=== PATIENT | female | born 1935 | race Caucasian/White ===

== ENCOUNTER 2016-09-02 14:00 | Inpatient (IN) | payer MEDICAID ==
[~2016-09-02] VITALS: Ht 170.2 cm; Wt 105.7 kg
--- NOTE | ~2016-09-02 | PUL ---
PATIENT'S NAME: ALEJANDRO STEVENS [facility] AGE: 81 Y [address] ROOM: [address] [address] LOCATION: GPCU ADMIT DATE: 09/08/2016 Pulmonary DISCHARGE DATE: 09/12/2016 FAMILY PHYSICIAN: Vince Mixon MD ATTENDING PHYSICIAN: Torin Mayfield NAME OF PROCEDURE: Overnight Pulse Oximetry DATE OF PROCEDURE: September 11 September 12, 2016 REASON FOR EXAM: Nocturnal hypoxemia RESULTS: The test was performed on room air. The recording time was 7 hours, 36 minutes, and 44 seconds, with a total valid sampling time of 7 hours, 23 minutes, and 48 seconds. The highest pulse was 126, lowest pulse was 60, with a mean pulse of 72. The highest SpO2 was 97%, lowest SpO2 was 69%, with a mean SpO2 of 90.1%. The patient spent 2 hours, 17 minutes, and 12 seconds with SpO2 less than 89%, representing 30.9% of the total sleep time. The desaturation event index was elevated at 20.4. PHYSICIAN INTERPRETATION: The patient has evidence of significant nocturnal hypoxia and would qualify for supplemental oxygen as per Medicare criteria. However because of the severity of her nocturnal hypoxia with an elevated desaturation event index a sleep study is recommended at this time. LISA PETERS MD RFLana/gabo /[id number] dtt: 09/15/16 1621 , LISA PETERS dtd: 09/15/16 1356
--- NOTE | ~2016-09-02 | DS ---
PATIENT'S NAME: ALEJANDRO STEVENS [facility] AGE: 81 Y [address] ROOM: [id number] [place], [place] [address] LOCATION: GPCU ADMIT DATE: 09/08/2016 Discharge Summary DISCHARGE DATE: 09/12/2016 FAMILY PHYSICIAN: Vince Mixon MD ATTENDING PHYSICIAN: Torin Mayfield FINAL DIAGNOSIS: Abdominal aortic aneurysm, postop endovascular aneurysm repair. SECONDARY DIAGNOSES: 1. Leukocytosis, resolved. 2. Essential hypertension. 3. Chronic kidney disease, stage 3. 4. Paroxysmal atrial fibrillation. 5. Diabetes mellitus type 2. PROCEDURES: EVAR of abdominal aortic aneurysm by Dr. Mayfield on 09/09/2016. CONSULTATIONS: Hospitalist for medication management. HOSPITAL COURSE: This is an 81-year-old female admitted to [facility] on 09/08/2016 in preparation of abdominal aortic aneurysm repair. The patient was with known 5.1 cm asymptomatic AAA without rupture. The patient was admitted on the evening prior to her procedure for hydration as well as pretreatment for contrast allergy with prednisone and Benadryl. The patient had elevated creatinine at 1.35. Lasix and metformin were held prior to procedure and normal saline fluids were initiated. Eliquis for paroxysmal atrial fibrillation, on hold 4 days prior. On 09/09/2016, the patient underwent abdominal aortic aneurysm, EVAR with Dr. Mayfield without complications. The patient tolerated the procedure well and after recovery, was admitted to progressive care unit for monitoring of telemetry, vitals, labs, surgical sites, pain management, medication administration, and nursing assistance. Her normal saline continued. She was also continued on IV Ancef for 24 hours. Wound Care did evaluate the patient for fungal rash under her bilateral breasts and abdominal folds. The patient was started on nystatin ointment. On postop day #1, the patient was found to have pain control at surgical incisions. Her sites were found to be stable without hematoma, and distal perfusion intact. Centeno catheter and arterial line removed, and the patient was up to chair without problems. The patient remained afebrile, but did have elevated white blood cell count as expected with post-implantation inflammatory response. Due to concern of leukocytosis, hospitalist ordered urinalysis, urine culture, procalcitonin level, blood cultures, and antibiotics if temperature were to reach greater than 100.4. Cultures were found to be negative. On postop day #2, Physical Therapy and Occupational Therapy began working with the patient. PATIENT'S NAME: ALEJANDRO STEVENS [facility] AGE: 81 Y [address] ROOM: [id number] [place], [place] [address] LOCATION: GPCU ADMIT DATE: 09/08/2016 Discharge Summary DISCHARGE DATE: 09/12/2016 FAMILY PHYSICIAN: Vince Mixon MD ATTENDING PHYSICIAN: Torin Mayfield She received daily dry dressing changes to her groin, and she had an improvement in leukocytosis. Once again, the patient remained afebrile. An overnight trend ox was ordered. The patient had evidence of significant nocturnal hypoxia and would qualify for supplemental oxygen as per Medicare criteria. However, because of the severity of her nocturnal hypoxia with an elevated desaturation event index, a sleep study was recommended at this time. On postop day #3, surgical incisions remained stable and intact. The patient was able to perform transfer and ambulate 150 feet with walker and standby assist with no loss of balance. She had no new complaints and pain was well controlled. She was found in a stable condition to discharge home with home health. LABORATORY DATA: White blood cell count trending 8.7, 17.1, 14.8, and 11.0. Hemoglobin trending 14.1, 12.5, 12.1, and 11.8. Creatinine trending 1.3, 1.4, 1.5, 1.3, and 1.2. DISCHARGE ORDERS: The patient is to be discharged to home on a diabetic diet. She is to avoid heavy lifting for 2 weeks. The patient is to receive assistance from [facility]. She is to follow up with Cathy Messer APRN in [place] on October 08 for staple removal and incision evaluation. She is to follow up with a CT for stent graft protocol in 3 months. She is to keep her groin incision dry and apply dry dressings daily. Report any signs or symptoms of infection including redness, swelling, fevers, chills, or drainage. DISCHARGE MEDICATIONS: 1. Celexa 40 mg p.o. every morning. 2. Celexa 20 mg p.o. every morning. 3. Lopressor 75 mg p.o. twice daily. 4. Protonix 40 mg p.o. daily before breakfast. 5. Lipitor 20 mg p.o. daily at bedtime. 6. Docusate sodium 100 mg p.o. twice daily. 7. Magnesium oxide 400 mg p.o. daily. 8. Eliquis 5 mg p.o. twice daily, to restart on 09/16/2016. 9. Cozaar 50 mg p.o. daily. 10. Lasix 20 mg p.o. daily. 11. Levothroid 125 mcg p.o. daily before breakfast. 12. Metformin extended release 500 mg p.o. every morning. 13. Nitroglycerin 0.4 mg sublingual as needed for chest pain. 14. Nystatin 30 grams topical 4 times daily. Apply to affected area. 15. [place] 5/325 one to two tabs p.o. every 4 hours as needed for pain. DISPOSITION: The patient was discharged to home in a stable condition with the assistance of home health. She is to follow discharge orders as prescribed. Education about discharge including incisional care, home health, PATIENT'S NAME: ALEJANDRO STEVENS [facility] AGE: 81 Y [address] ROOM: [place] [address] LOCATION: GPCU ADMIT DATE: 09/08/2016 Discharge Summary DISCHARGE DATE: 09/12/2016 FAMILY PHYSICIAN: Vince Mixon MD ATTENDING PHYSICIAN: Toirn Mayfield medications, prescriptions, diet and activity, and followup appointments were given to the patient. The patient verbalized an understanding of the plan and had no further questions or concerns. She is to follow discharge orders as prescribed. CATHY MESSER APRN FOR TORIN MAYFIELD MD TO/modl /[id number] d: 09/18/16 1036 t: 09/19/16 1253, DISCHARGE SUMMARY
--- NOTE | ~2016-09-02 | OR ---
PATIENT'S NAME: ALEJANDRO STEVENS [facility] AGE: 81 Y [address] ROOM: [place] [address] LOCATION: GPCU ADMIT DATE: 09/08/2016 OR/Procedure Report DISCHARGE DATE: FAMILY PHYSICIAN: Vince Mixon MD ATTENDING PHYSICIAN: TORIN TAYLOR SURGEON: Torin Taylor MD TIRE DESIGN ENGINEER: DATE OF PROCEDURE: 09/09/2016 PREOPERATIVE DIAGNOSIS: 5.5 cm abdominal aortic aneurysm. POSTOPERATIVE DIAGNOSIS: 5.5 cm abdominal aortic aneurysm. PROCEDURE: Endovascular repair of abdominal aortic aneurysm. REPAIRER HELPER: SUDHA Melton. ANESTHESIA: General. ESTIMATED BLOOD LOSS: 100 mL. OPERATIVE FINDINGS: Aneurysm repair with no evidence of endoleak at the end of the case. DESCRIPTION OF PROCEDURE: The patient was brought to [facility], placed supine on the dental laboratory assistant table, placed under general anesthesia, had placement of an arterial line as well as a Centeno catheter. Prepped and draped in a sterile manner. Preoperative time-out was performed. The patient received clindamycin for preoperative antibiotics. We performed a cutdown using standard technique and inserted an 8-Senegalese sheath into the ipsi vessel which was on the right common femoral artery and a 7-Senegalese sheath into the contra side using percutaneous technique, 1st using a micropuncture needle, followed by micropuncture wire, followed by micropuncture sheath and exchanged using Seldinger technique for those sheaths. Angiogram performed of the major vessels identifying potential problem areas through the ipsilateral sheath, exchanged wire for a Lunderquist stiff wire to the thoracic aorta and exchanged ipsi sheath for the 17-Senegalese AFX2 introducer sheath and advanced to the aortoiliac bifurcation. We removed the dilator, advanced to bifurcated delivery system over the 0.035 wire stopped approximately 1 cm short of the introducer sheath. I advanced a wire guide into the introducer sheath and advanced the wire to the aortoiliac bifurcation, snared the contralateral limb wire and pulled through the contralateral sheath, and removed the wire guide. I advanced and docked the bifurcated delivery system and transferred the bifurcated device into the introducer sheath stopping when the RO tip was at the end of the sheath, confirming contra limb orientation at the aortic PATIENT'S NAME: ALEJANDRO STEVENS [facility] AGE: 81 Y [address] ROOM: [facility] [place] [place] [place], [place] [address] LOCATION: GPCU ADMIT DATE: 09/08/2016 OR/Procedure Report DISCHARGE DATE: FAMILY PHYSICIAN: Vince Mixon MD ATTENDING PHYSICIAN: TORIN TAYLOR. We advanced a bifurcated graft into the limbs where above the aortoiliac bifurcation and pulled the graft down to the aortic bifurcation. Deployed in the main body of graft by twisting and then pulling the device on the control cord. Retracted the inner cord deploying on the ipsi limb, removed bifurcated delivery system and the introducer sheath, and advanced a dilator into the 17-Senegalese sheath to the renal arteries. We released the contralateral limb by retracting the contra limb wire and pulling the limb cover from the limb, then exchanged an angiographic catheter over the 0.035 wire placing at the level of the lowest renal. Injected contrast was visualized in the renal arteries. We removed the dilator and advanced the extension delivery system with a graft material 1 cm above the renal vessels. We removed the safety clamp and delivered the aortic extension by turning the control down, removed the extension delivery system while maintaining 0.035 access. We advanced a Coda balloon to the proximal end of the stent graft, main body of the balloon, throughout the stent graft, and the ipsi limb. We had pre-dilated the ipsi limb with a 12 x 4 balloon. We performed angiogram to inspect for any visible endoleaks, none were found, and closure was performed. We closed the deep layers on the right limb with a 2-0 and 3-0 Vicryl, and the skin was closed with megan. Pressure was held on the left limb. The patient was transferred to recovery room and to the floor. MD SARAH WAREM/modl /[id number] d: 09/09/16 2213 t: 09/15/16 1200, OPERATIVE SUMMARY
[~2016-09-02 14:00] MED LIST: CELEXA20 MG PO; CELEXA40 MG PO; COZAAR50 MG PO; ELIQUIS5 MG PO; GLUCOPHAGE XR500 M1 PO; LASIX20 MG PO; LEVOTHROID (S125 MCG PO; LIPITOR40 MG PO; LOPRESSOR25 MG PO; MAG-OX-400(241400 MG PO; PROTONIX40 MG PO; STOOL SOFTENER100 MG PO
[2016-09-08] MEDS ORDERED: NITROSTAT0.4 MG SL (18:13)
[2016-09-08 20:21] LABS: ANION GAP 11.2 (10.0-19.0); CALCIUM 9.1 mg/dL (8.5-10.5); CREATININE 1.3 mg/dL (0.5-1.1); MAGNESIUM 2.1 mg/dL (1.8-2.6); PHOSPHORUS 3.2 mg/dL (2.5-4.9); POTASSIUM 4.2 mMol/L (3.7-5.1)
[2016-09-09 03:43] LABS: BASOPHIL % 0.5 %; EOSINOPHIL % 0.1 %; HEMOGLOBIN 14.1 g/dL (10.0-15.0); IMMATURE GRANULOCYTE % 0.5 %; LYMPHOCYTE # 0.9 K/uL (0.8-4.0); LYMPHOCYTE % 9.9 %; MCH 28.1 pg (27.0-34.0); MCHC 31.3 gm/dL (32.0-36.5); MCV 89.8 fl (83.0-98.0); MONOCYTE # 0.2 K/uL (0.0-1.0); MONOCYTE % 2.3 %; MPV 10.7 fl (9.4-12.4); NEUTROPHIL # (ANC) 7.6 K/uL (1.8-7.8); NEUTROPHIL % 86.7 %; NRBC % 0 /100WBC (0-0.00); PLATELET COUNT 247 K/uL (150-450); RBC 5.01 M/uL (3.00-5.00); RDW-CV 15.2 % (11.9-14.6); WBC 8.7 K/uL (4.0-11.0)
[2016-09-09 04:03] LABS: ALBUMIN 2.9 gm/dL (3.5-5.0); ANION GAP 9.4 (10.0-19.0); CALCIUM 9.1 mg/dL (8.5-10.5); CREATININE 1.4 mg/dL (0.5-1.1); POTASSIUM 4.4 mMol/L (3.7-5.1); TOTAL BILIRUBIN 0.5 mg/dL (0.0-1.5); TOTAL PROTEIN 7.1 g/dL (6.0-8.4)
[2016-09-09 14:00] LABS: ANION GAP 15.4 (10.0-19.0); CALCIUM 8.2 mg/dL (8.5-10.5); CREATININE 1.5 mg/dL (0.5-1.1); POTASSIUM 4.4 mMol/L (3.7-5.1)
[2016-09-10 05:47] LABS: ANION GAP 11.5 (10.0-19.0); CALCIUM 8.4 mg/dL (8.5-10.5); CREATININE 1.3 mg/dL (0.5-1.1); POTASSIUM 4.5 mMol/L (3.7-5.1)
[2016-09-10 05:51] LABS: BASOPHIL % 0.2 %; HEMATOCRIT 39.7 % (30.0-46.0); HEMOGLOBIN 12.5 g/dL (10.0-15.0); IMMATURE GRANULOCYTE # 0.1 K/uL (0.0-0.3); IMMATURE GRANULOCYTE % 0.6 %; LYMPHOCYTE # 0.8 K/uL (0.8-4.0); LYMPHOCYTE % 4.4 %; MCH 28.3 pg (27.0-34.0); MCHC 31.5 gm/dL (32.0-36.5); MCV 89.8 fl (83.0-98.0); MONOCYTE # 1.1 K/uL (0.0-1.0); MONOCYTE % 6.6 %; MPV 11.1 fl (9.4-12.4); NEUTROPHIL # (ANC) 15.1 K/uL (1.8-7.8); NEUTROPHIL % 88.2 %; NRBC % 0 /100WBC (0-0.00); PLATELET COUNT 205 K/uL (150-450); RBC 4.42 M/uL (3.00-5.00); RDW-CV 15.6 % (11.9-14.6)
[2016-09-10 05:54] LABS: WBC 17.1 K/uL (4.0-11.0)
[2016-09-10 19:30] LABS: BILIRUBIN URINE NEGATIVE (NEGATIVE); BLOOD URINE 50 /UL (NEGATIVE); COLOR URINE YELLOW (YELLOW); GLUCOSE URINE NEGATIVE (NEGATIVE); KETONE URINE NEGATIVE (NEGATIVE); LEUKOCYTES URINE 25 /UL (NEGATIVE); NITRITE URINE NEGATIVE (NEGATIVE); PROTEIN URINE NEGATIVE (NEGATIVE); SPEC GRAVITY URINE 1.015 (1.003-1.035); TURBIDITY URINE CLEAR (CLEAR); UROBILINOGEN URINE NORMAL (NORMAL)
[2016-09-10 19:38] LABS: RBC URINE 0-2 #/HPF (NEGATIVE)
[2016-09-10 19:39] LABS: BACTERIA URINE MODERATE (NEGATIVE); MUCUS URINE 1+ (NEGATIVE)
[2016-09-11 07:25] LABS: BASOPHIL # 0.1 K/uL (0.0-0.2); BASOPHIL % 0.4 %; EOSINOPHIL # 0.1 K/uL (0.0-0.5); EOSINOPHIL % 0.5 %; HEMATOCRIT 38.8 % (30.0-46.0); HEMOGLOBIN 12.1 g/dL (10.0-15.0); IMMATURE GRANULOCYTE # 0.1 K/uL (0.0-0.3); IMMATURE GRANULOCYTE % 0.6 %; LYMPHOCYTE # 1.2 K/uL (0.8-4.0); LYMPHOCYTE % 7.8 %; MCH 28.3 pg (27.0-34.0); MCHC 31.2 gm/dL (32.0-36.5); MCV 90.9 fl (83.0-98.0); MONOCYTE # 1.6 K/uL (0.0-1.0); MONOCYTE % 10.5 %; MPV 10.8 fl (9.4-12.4); NEUTROPHIL # (ANC) 11.9 K/uL (1.8-7.8); NEUTROPHIL % 80.2 %; NRBC % 0 /100WBC (0-0.00); PLATELET COUNT 190 K/uL (150-450); RBC 4.27 M/uL (3.00-5.00); WBC 14.8 K/uL (4.0-11.0)
[2016-09-11 07:41] LABS: ANION GAP 12.3 (10.0-19.0); CALCIUM 8.4 mg/dL (8.5-10.5); CREATININE 1.2 mg/dL (0.5-1.1); MAGNESIUM 2.2 mg/dL (1.8-2.6); POTASSIUM 4.3 mMol/L (3.7-5.1)
[2016-09-12 05:02] LABS: BASOPHIL # 0.1 K/uL (0.0-0.2); BASOPHIL % 0.5 %; EOSINOPHIL # 0.2 K/uL (0.0-0.5); EOSINOPHIL % 1.4 %; HEMATOCRIT 37.7 % (30.0-46.0); HEMOGLOBIN 11.8 g/dL (10.0-15.0); IMMATURE GRANULOCYTE % 0.4 %; LYMPHOCYTE # 1.2 K/uL (0.8-4.0); LYMPHOCYTE % 10.5 %; MCH 28.2 pg (27.0-34.0); MCHC 31.3 gm/dL (32.0-36.5); MONOCYTE # 1.4 K/uL (0.0-1.0); MONOCYTE % 12.7 %; NEUTROPHIL # (ANC) 8.2 K/uL (1.8-7.8); NEUTROPHIL % 74.5 %; NRBC % 0 /100WBC (0-0.00); PLATELET COUNT 172 K/uL (150-450); RBC 4.19 M/uL (3.00-5.00); RDW-CV 15.6 % (11.9-14.6)
[2016-09-12] MEDS ORDERED: MYCOSTATIN OINT30 GM TOP (10:33)
[2016-09-12] MEDS ORDERED: NORCO 5-325 TA1 EACH PO (10:44)
== END 2016-09-12 11:15 | disposition home health service (06) | DRG 269 ==
LOC: GPCU 09-08 17:10
PROVIDERS: Hospitalist; Internal Medicine; ADMIT Surgery Vascular Surgery
PROC: 04V03D6 (ICD-10-PCS; principal; 2016-09-09)
DX: I71.4 Abdominal aortic aneurysm, without rupture (principal); E11.22 Type 2 diabetes mellitus with diabetic chronic kidney disease; E11.51 Type 2 diabetes mellitus with diabetic peripheral angiopathy without gangrene; I48.0 Paroxysmal atrial fibrillation; I71.2 Thoracic aortic aneurysm, without rupture; E78.5 Hyperlipidemia, unspecified; I25.2 Old myocardial infarction; E03.9 Hypothyroidism, unspecified; F32.9 Major depressive disorder, single episode, unspecified; F41.9 Anxiety disorder, unspecified; I12.9 Hypertensive chronic kidney disease with stage 1 through stage 4 chronic kidney disease, or unspecified chronic kidney disease; N18.3 Chronic kidney disease, stage 3 (moderate); Z79.01 Long term (current) use of anticoagulants; D72.829 Elevated white blood cell count, unspecified; Z79.84 Long term (current) use of oral hypoglycemic drugs
CPT/HCPCS: C1725; C1769; C1874; C1894; C2628; J1100; J1644; J1650; J2405; J2720; J7030